=== PATIENT | female | born 1985 | race Caucasian/White ===

== ENCOUNTER 2018-08-31 14:29 | Emergency (ER) | payer MEDICAID ==
[~2018-08-31] VITALS: Ht 152.4 cm; Wt 81.6 kg
[2018-08-31 15:38] LABS: Albumin 3.6 g/dL (3.4-5.0); Anion Gap 4 (5-15); Calcium 8.4 mg/dL (8.5-10.1); Carbon Dioxide 27 mmol/L (21-32); Chloride 110 mmol/L (98-107); Glucose 97 mg/dL (74-106); Potassium 4.2 mmol/L (3.5-5.1); Sodium 141 mmol/L (136-145)
[2018-08-31 15:44] LABS: Alanine Aminotransferase 17 U/L (13-56); Alkaline Phosphatase 66 U/L (45-117); Aspartate Aminotransferase 13 U/L (15-37); BUN/Creatinine Ratio 22.9; Bilirubin, Total 0.4 mg/dL (0.2-1.0); Blood Urea Nitrogen 16 mg/dL (7-18); GFR African American 123 mL/min; GFR Non-African American 102 mL/min; Total Protein 7.1 g/dL (6.4-8.2)
[2018-08-31 16:07] LABS: Basophils # (auto) 0 uL; Basophils % (auto) 0.4 % (0.0-2.0); Eosinophils # (auto) 0.1 uL; Eosinophils % (auto) 1.8 % (0.0-7.0); Hematocrit 41.2 % (36.0-46.0); Hemoglobin 14.2 g/dL (12.2-16.2); Lymphocytes # (auto) 1.4 uL; Lymphocytes % (auto) 22.3 % (10.0-50.0); Mean Corpuscular Hemoglobin 29.8 pg (28.0-32.0); Mean Corpuscular Hgb Conc. 34.4 g/dL (32.0-36.0); Mean Corpuscular Volume 86.8 fL (80.0-100.0); Monocytes # (auto) 0.4 uL; Monocytes % (auto) 6.2 % (0.0-12.0); Neutrophils # (auto) 4.3 uL; Neutrophils % (auto) 69.3 % (37.0-80.0); Nucleated Red Blood Cells % 0.1 %; Platelet Count (auto) 230 10^3/uL (140-450); Red Blood Cells 4.75 10^6/uL (4.0-5.20); White Blood Cell 6.3 10^3/uL (4.4-10.8)
[2018-08-31] MEDS ORDERED: IOHEXOL 350 MG/ML 100ML IJ ONE (16:44)
[2018-08-31 17:42] VITALS: BP 117/60
[2018-08-31 17:42] LABS: Urine Bacteria FEW /hpf (None Seen); Urine Blood 1+ /uL (Negative); Urine Specific Gravity 1.028 (1.001-1.035); Urine WBC 7 /hpf (0 - 5)
== END 2018-08-31 19:13 | disposition home or self-care (01) ==
LOC: ER 14:29
DX: R00.2 Palpitations (principal); N39.0 Urinary tract infection, site not specified
CPT/HCPCS: 36415; 71275; 80053; 81001; 84484; 85025; 85379; 93005; 99284; Q9967